=== PATIENT | male | born 1950 | race Caucasian/White ===

== ENCOUNTER 2018-06-27 08:56 | Day surgery (SDC) | payer MEDICARE, OTHER ==
[2018-06-27 09:32] LABS: HEMATOCRIT 39.9 % (37.9-51.0); HEMOGLOBIN 13.7 g/dL (13.5-17.0); MEAN CORPUSCULAR HEMOGLOBIN 30.6 pg (27.0-33.4); MEAN CORPUSCULAR HGB CONC 34.3 g/dL (32.0-36.0); MEAN CORPUSCULAR VOLUME 89 fl (80-97); PLATELET COUNT 186 10^3/uL (150-450); RED BLOOD COUNT 4.47 10^6/uL (4.35-5.55); RED CELL DISTRIBUTION WIDTH 13.3 % (11.5-14.0); WHITE BLOOD COUNT 5.1 10^3/uL (4.0-10.5)
[2018-06-27 09:49] LABS: BLOOD UREA NITROGEN 25 mg/dL (7-20)
[2018-06-27 09:51] LABS: INTERNATIONAL RATION (INR) 0.96; PROTHROMBIN TIME 13.3 SEC (11.4-15.4)
[2018-06-27 09:52] LABS: PARTIAL THROMBOPLASTIN TIME 33.2 SEC (23.5-35.8)
[2018-06-27] MEDS ORDERED: MIDAZOLAM 2 MG/2 ML INJ ONE (10:55)
[2018-06-27] MEDS ORDERED: FENTANYL CITRATE INJ/PF 100 MCG/2 ML AMPUL ONE (10:55)
[2018-06-27] MEDS ORDERED: LIDOCAINE 1% INJ-PF (10 MG/ML) 30 ML SDV ONE (10:56)
--- NOTE | 2018-06-27 12:01 | RADIOLOGY REPORT (SQ) ---
EXAM DESCRIPTION: CT BIOPSY BONE MARROW, NEEDLE; CT NEEDLE PLACEMENT COMPLETED DATE/TIME: 06/27/2018 11:28 am REASON FOR STUDY: ANEMIA; ANEMIA, BONE MARROW BIOPSY D64.9 ANEMIA, UNSPECIFIED Z79.01 [facility] (C URRENT) USE OF ANTICOAGULANTS COMPARISON: None. TECHNIQUE: CT guided biopsy of the right posterior iliac crest performed with conscious sedation. CT Fluoroscopy Time: 2.[address] scanners at this facility use dose modulation, iterative reconstruction, and/or weight based d osing when appropriate to reduce radiation dose to as low as reasonably achievable (ALARA). [facility]: Dose Right [facility]: CareDose [facility]: Dose Right [facility]: Teradose 4D [facility]: [facility] RADIATION DOSE: mGy. FINDINGS: After obtaining informed consent and explaining the risks and benefits of conscious sedati on,the patient agreed to the procedure. Prior to the procedure, a time out was performed to verify th e patient's identity and planned procedure. IV conscious sedation was administered and physician direction by the registered nurse using 1 millig dannielle of Versed and 75 micrograms of fentanyl. Physiologic monitoring was provided before, during, and after sedation. The total sedation time was 30 minutes. Documentation face to face time, the performing proceduralist, spent monitoring the patient: [address] scanning was performed to localize the percutaneous site for the biopsy approach. After sterile skin prep and local lidocaine for skin and deep tissue anesthesia, a coaxial biopsy nee dle was used to obtain a bone marrow aspirate, and a bone marrow core of tissue. The biopsy tissue wa s received by [facility] lab to be sent out for evaluation. There were no immediate complications. Pathology is pending at the time of dictation. IMPRESSION: CT GUIDED ASPIRATE AND CORE BIOPSY OF THE RIGHT POSTERIOR ILIAC CREST BONE MARROW PERFOR MED WITHOUT IMMEDIATE COMPLICATION. PATHOLOGY PENDING. IV CONSCIOUS SEDATION WITHOUT COMPLICATION. COMMENT: Quality ID 145: Final reports for procedures using fluoroscopy that document radiation exp osure indices, or exposure time and number of fluorographic images (if radiation exposure indices are not available) Patient medication list reviewed: Yes- Quality ID# [id number]:Eligible professional attests to documenting i n the medical record they obtained, updated, or reviewed the patient's current medications.. TECHNICAL DOCUMENTATION: JOB ID: [id number] Quality ID# 436: Final reports with documentation of one or more dose reduction techniques (e.g., Aut omated exposure control, adjustment of the mA and/or kV according to patient size, use of iterative r econstruction technique) 2010 [employer]- All Rights Reserved Reading location - IP/workstation name: [email or web address]
--- NOTE | 2018-06-27 12:01 | RADIOLOGY REPORT (SQ) ---
EXAM DESCRIPTION: CT BIOPSY BONE MARROW, NEEDLE; CT NEEDLE PLACEMENT COMPLETED DATE/TIME: 06/27/2018 11:28 am REASON FOR STUDY: ANEMIA; ANEMIA, BONE MARROW BIOPSY D64.9 ANEMIA, UNSPECIFIED Z79.01 [facility] (C URRENT) USE OF ANTICOAGULANTS COMPARISON: None. TECHNIQUE: CT guided biopsy of the right posterior iliac crest performed with conscious sedation. CT Fluoroscopy Time: 2.[address] scanners at this facility use dose modulation, iterative reconstruction, and/or weight based d osing when appropriate to reduce radiation dose to as low as reasonably achievable (ALARA). [facility]: Dose Right [facility]: CareDose [facility]: Dose Right [facility]: Teradose 4D [facility]: [employer] RADIATION DOSE: mGy. FINDINGS: After obtaining informed consent and explaining the risks and benefits of conscious sedati on,the patient agreed to the procedure. Prior to the procedure, a time out was performed to verify th e patient's identity and planned procedure. IV conscious sedation was administered and physician direction by the registered nurse using 1 millig dannielle of Versed and 75 micrograms of fentanyl. Physiologic monitoring was provided before, during, and after sedation. The total sedation time was 30 minutes. Documentation face to face time, the performing proceduralist, spent monitoring the patient: [address] scanning was performed to localize the percutaneous site for the biopsy approach. After sterile skin prep and local lidocaine for skin and deep tissue anesthesia, a coaxial biopsy nee dle was used to obtain a bone marrow aspirate, and a bone marrow core of tissue. The biopsy tissue wa s received by [facility] lab to be sent out for evaluation. There were no immediate complications. Pathology is pending at the time of dictation. IMPRESSION: CT GUIDED ASPIRATE AND CORE BIOPSY OF THE RIGHT POSTERIOR ILIAC CREST BONE MARROW PERFOR MED WITHOUT IMMEDIATE COMPLICATION. PATHOLOGY PENDING. IV CONSCIOUS SEDATION WITHOUT COMPLICATION. COMMENT: Quality ID 145: Final reports for procedures using fluoroscopy that document radiation exp osure indices, or exposure time and number of fluorographic images (if radiation exposure indices are not available) Patient medication list reviewed: Yes- Quality ID# 130:Eligible professional attests to documenting i n the medical record they obtained, updated, or reviewed the patient's current medications.. TECHNICAL DOCUMENTATION: JOB ID: [id number] Quality ID# 436: Final reports with documentation of one or more dose reduction techniques (e.g., Aut omated exposure control, adjustment of the mA and/or kV according to patient size, use of iterative r econstruction technique) 2010 [email or web address]- All Rights Reserved Reading location - IP/workstation name: [email or web address]
[2018-06-27 14:07] VITALS: BP 120/79
== END 2018-06-27 13:40 | disposition home or self-care (01) ==
LOC: RAD 08:56
PROVIDERS: ATTEND Internal Medicine Medical Oncology
DX: D64.9 Anemia, unspecified (principal); Z79.82 Long term (current) use of aspirin; Z79.899 Other long term (current) drug therapy; Z87.891 Personal history of nicotine dependence; Z79.01 Long term (current) use of anticoagulants
CPT/HCPCS: 36415; 84520; 82565; 85027; 85610; 85730; 38221; 77012; J2250; J3010; J3490

== ENCOUNTER → 2018-07-16 | Outpatient (CLI) | payer MEDICARE, OTHER ==
[2018-07-16 11:33] LABS: FREE T3 3.83 pg/mL (2.77-5.27); FREE T4 (FREE THYROXINE) 0.88 ng/dL (0.78-2.19)
[2018-07-16 11:47] LABS: THYROID STIMULATING HORMONE 1.28 uIU/mL (0.47-4.68)
[2018-07-16 12:31] LABS: FOLATE > 20.00 ng/mL (>2.76)
[2018-07-17 06:39] LABS: THYROID PEROXIDASE (TPO) AB 19 IU/mL (0-34)
[2018-07-17 08:23] LABS: THYROGLOBULIN AB <1.0 IU/mL (0.0-0.9)
== END ==
LOC: OD 09:26
PROVIDERS: ATTEND Specialist
DX: G31.84 Mild cognitive impairment of uncertain or unknown etiology (principal); G47.33 Obstructive sleep apnea (adult) (pediatric)
CPT/HCPCS: 36415; 82607; 82746; 84439; 84443; 84481; 86376

== ENCOUNTER → 2018-12-10 | Outpatient (CLI) | payer MEDICARE, OTHER ==
--- NOTE | 2018-12-11 10:15 | RADIOLOGY REPORT (SQ) ---
EXAM DESCRIPTION: PET CT SKULL/THIGH COMPLETED DATE/TIME: 12/10/2018 10:50 pm REASON FOR STUDY: LUNG CANCER R91.1 SOLITARY PULMONARY NODULE COMPARISON: Outside CT 11/18/2018, 10/29/2018, 10/01/2017 RADIONUCLIDE AND DOSE: 10.9 mCi F18 FDG The route of agent administration: Intravenous FASTING BLOOD SUGAR: 96 mg/dl CONTRAST TYPE AND DOSE: No CT contrast given. TECHNIQUE: Blood glucose level was verified. Above dose of FDG was injected intravenously. 2-D seg mented attenuation correction images were obtained from the base of the skull to the midthighs. Nonc ontrast CT images were obtained for attenuation correction and fusion with emission images. CT image s were performed without oral or intravenous contrast and are not sensitive for parenchymal lesions. A series of overlapping emission PET images were obtained. Images reviewed and manipulated at [facility] work station by the radiologist. Images stored on PACS. LIMITATIONS: None. FINDINGS: HEAD AND NECK: No areas of abnormal metabolic activity in the soft tissues of the head and neck. CHEST: Prior outside chest CT exams were reviewed. On the current study, a 6 mm nodule is present i n the right upper lobe at the intersection of the major and minor fissures on axial image 92/303. Th is is too small to effectively characterize with PET-CT being less than a cm in size. PET-CT the hea led of false negative result. Continued periodic low-dose lung CT is recommended for surveillance. A benign 4 x 2 cm enteric cyst is present along the leftward lateral aspect of the distal esophagus i n the lower chest. This has SUV of 0.8 which below soft tissue baseline activity. ABDOMEN AND PELVIS: No areas of abnormal metabolic activity in the abdomen or pelvis. Expected physi ologic activity is present in the genitourinary system and bowel. PROXIMAL LOWER EXTREMITIES: No areas of abnormal metabolic activity in the soft tissues of the lower extremities. BONES: No abnormal metabolic activity in the visualized skeleton. ADDITIONAL CT FINDINGS: Very heavily calcified coronary arteries. Left maxillary sinusitis with air-fluid level. 1.7 cm right lower pole renal stone, [address] u nits in density. Left total hip replacement. OTHER: Blood pool background activity 1.9 SUV. Liver background activity 2.4 SUV. IMPRESSION: 6 mm nodule in the right lobe near the intersection of the major and minor fissure. Thi s is too small to effectively characterize with PET-CT being less than 1 cm in greatest diameter. Co ntinued periodic low-dose lung CT is recommended for surveillance TECHNICAL DOCUMENTATION: JOB ID: [id number] [employer]- All Rights Reserved Reading location - IP/workstation name: [email or web address]
== END ==
LOC: RAD 19:50
PROVIDERS: ATTEND Nurse Practitioner
DX: R91.1 Solitary pulmonary nodule (principal)
CPT/HCPCS: 78815; A9552

== ENCOUNTER 2019-01-05 10:36 | Emergency (ER) | payer MEDICARE, OTHER ==
--- NOTE | 2019-01-05 11:20 | ER Document Report ---
ED Medical Screen (RME) - General Chief Complaint: Fall Injury Stated Complaint: FALL/SHOULDER AND HIP PAIN Time Seen by Provider: 01/05/19 10:59 Primary Care Provider: MARY JOHNSON NP [Primary Care Provider] - Follow up as needed Notes: Patient is a 68-year-old male who presents the emergency department after a fall on his left hip and left shoulder. He is walking his dog this morning and fell on concrete. He has complaints of left hip, left ankle, and left shoulder pain. He is unsure as to whether or not he hit his head. The patient is currently on blood thinners. He has an extensive medical history. Exam: Left hip tenderness I have greeted and performed a rapid initial assessment of this patient. A comprehensive ED assessment and evaluation of the patient, analysis of test results and completion of medical decision making process will be conducted by an additional ED providers. TRAVEL OUTSIDE OF THE [place] IN LAST 30 DAYS: No - Related Data Allergies/Adverse Reactions: No Known Drug Allergies Allergy (Unknown, Verified 01/05/19 10:37) Lobster Allergy (Severe, Uncoded 01/05/19 10:37) Unknown reaction Past Medical History - Past Medical History Cardiac Medical History: Reports: Hx Coronary Artery Disease, Hx Heart Attack - stents x 3, Hx Hypertension Pulmonary Medical History: Denies: Hx Asthma, Hx Bronchitis, Hx COPD, Hx Pneumonia, Hx Tuberculosis Neurological Medical History: Reports: Hx Cerebrovascular Accident - STROKE W/CARDIAC ARREST - NO DEFICITS. Denies: Hx Seizures Musculoskeltal Medical History: Reports Hx Arthritis - ALL OVER Traumatic Medical History: Reports: Hx Fractures - LT hip, RT foot after fall from ladder 1-6-12 Past Surgical History: Reports: Hx Herniorrhaphy - RIGHT inguinal, Hx Orthopedic Surgery - Immunizations Hx Diphtheria, Pertussis, Tetanus Vaccination: Yes - 2009 History of Influenza Vaccine for 06/2017 - 11/2017 Season: No Physical Exam - Vital signs Vitals: Temp Pulse Resp BP Pulse Ox 97.1 F 55 L 18 100/70 97 01/05/19 10:53 01/05/19 10:53 01/05/19 10:53 01/05/19 10:53 01/05/19 10:53 Course - Vital Signs Vital signs: Temp Pulse Resp BP Pulse Ox 97.1 F 55 L 18 100/70 97 01/05/19 10:53 01/05/19 10:53 01/05/19 10:53 01/05/19 10:53 01/05/19 10:53 Doctor's Discharge - Discharge Referrals: MARY JOHNSON NP [Primary Care Provider] - Follow up as needed
--- NOTE | 2019-01-05 12:08 | RADIOLOGY REPORT (SQ) ---
EXAM DESCRIPTION: SHOULDER LEFT 2 OR MORE VIEWS COMPLETED DATE/TIME: 01/05/2019 11:41 am REASON FOR STUDY: fall COMPARISON: None. NUMBER OF VIEWS: Three views. TECHNIQUE: Internal rotation, external rotation, and Y view images acquired of the left shoulder. LIMITATIONS: None. FINDINGS: MINERALIZATION: Normal. BONES: No acute fracture or dislocation. No worrisome bone lesions. JOINTS: No dislocation. VISUALIZED LUNGS AND RIBS: No pneumothorax. No rib fracture. SOFT TISSUES: No radiopaque foreign body. OTHER: No other significant finding. IMPRESSION: NEGATIVE STUDY OF THE LEFT SHOULDER. NO RADIOGRAPHIC EVIDENCE OF ACUTE INJURY. TECHNICAL DOCUMENTATION: JOB ID: [id number] [employer]- All Rights Reserved Reading location - IP/workstation name: [email or web address]
--- NOTE | 2019-01-05 12:08 | RADIOLOGY REPORT (SQ) ---
EXAM DESCRIPTION: ANKLE LEFT COMPLETE COMPLETED DATE/TIME: 01/05/2019 11:41 am REASON FOR STUDY: fall COMPARISON: None. NUMBER OF VIEWS: Three views. TECHNIQUE: AP, lateral, and oblique radiographic images acquired of the left ankle. LIMITATIONS: None. FINDINGS: MINERALIZATION: Osteopenia. BONES: No acute fracture. Extensive hardware from prior trauma. No obvious hardware failure. JOINTS: No effusions. SOFT TISSUES: No soft tissue swelling. No foreign body. OTHER: No other significant finding. IMPRESSION: No acute findings. Old trauma with extensive hardware. TECHNICAL DOCUMENTATION: JOB ID: [id number] [employer]- All Rights Reserved Reading location - IP/workstation name: [email or web address]
[2019-01-05] MEDS ORDERED: FENTANYL CITRATE INJ/PF 100 MCG/2 ML AMPUL IV ONE (12:41)
[2019-01-05 12:43] LABS: ALANINE AMINOTRANSFERASE 35 U/L (21-72); ALKALINE PHOSPHATASE 85 U/L (38-126); ANION GAP 9 (5-19); ASPARTATE AMINO TRANSFERASE 29 U/L (17-59); BILIRUBIN,DIRECT 0.3 mg/dL (0.0-0.4); BILIRUBIN,TOTAL 0.6 mg/dL (0.2-1.3); BLOOD UREA NITROGEN 35 mg/dL (7-20); CARBON DIOXIDE 26 mmol/L (22-30); CHLORIDE 104 mmol/L (98-107); GLUCOSE 95 mg/dL (75-110); POTASSIUM 4.7 mmol/L (3.6-5.0); SODIUM 139.1 mmol/L (137-145); TOTAL PROTEIN 7.1 g/dL (6.3-8.2)
[2019-01-05 13:02] LABS: ABSOLUTE EOSINOPHILS # (AUTO) 0.1 10^3/uL (0.0-0.6); ABSOLUTE LYMPHOCYTES (AUTO) 1.5 10^3/uL (0.5-4.7); ABSOLUTE MONOCYTES (AUTO) 0.7 10^3/uL (0.1-1.4); ABSOLUTE NEUT (AUTO) 8.5 10^3/uL (1.7-8.2); BASOPHILS % (AUTO) 0.2 % (0-2); EOSINOPHILS % (AUTO) 1.3 % (0-6); HEMATOCRIT 35.3 % (37.9-51.0); LYMPHOCYTES % (AUTO) 13.7 % (13-45); MEAN CORPUSCULAR HEMOGLOBIN 30.4 pg (27.0-33.4); MEAN CORPUSCULAR HGB CONC 34.1 g/dL (32.0-36.0); MEAN CORPUSCULAR VOLUME 89 fl (80-97); MONOCYTES % (AUTO) 6.1 % (3-13); PLATELET COUNT 193 10^3/uL (150-450); RED BLOOD COUNT 3.95 10^6/uL (4.35-5.55); RED CELL DISTRIBUTION WIDTH 13.5 % (11.5-14.0); SEGMENTED NEUTROPHILS % (AUTO) 78.7 % (42-78); TOTAL CELLS COUNTED % (AUTO) 100 %; WHITE BLOOD COUNT 10.8 10^3/uL (4.0-10.5)
--- NOTE | 2019-01-05 13:26 | RADIOLOGY REPORT (SQ) ---
EXAM DESCRIPTION: PELVIS AP COMPLETED DATE/TIME: 01/05/2019 12:55 pm REASON FOR STUDY: fall COMPARISON: None. NUMBER OF VIEWS: One view TECHNIQUE: AP Pelvis LIMITATIONS: None. FINDINGS: MINERALIZATION: Normal. HIPS: No acute fracture or dislocation. Left total hip arthroplasty hardware appears in expected pos ition on this frontal projection. PELVIS AND SACRUM: No acute fracture or dislocation. No worrisome bone lesions. PUBIS AND ISCHIUM: No acute fracture. LOWER LUMBAR SPINE: No significant findings as visualized. SOFT TISSUES: No findings. OTHER: No other significant finding. IMPRESSION: No fracture identified. COMMENT: Pelvic fractures are often occult on plain radiographs. If strong clinical suspicion for f racture, recommend CT or MR. TECHNICAL DOCUMENTATION: JOB ID: [id number] [place]-72 2010 [employer]- All Rights Reserved Reading location - IP/workstation name: [email or web address]
--- NOTE | 2019-01-05 13:29 | ER Document Report ---
ED General - General Chief Complaint: Fall Injury Stated Complaint: FALL/SHOULDER AND HIP PAIN Time Seen by Provider: 01/05/19 10:59 Primary Care Provider: MARY JOHNSON NP [Primary Care Provider] - Follow up as needed Mode of Arrival: Ambulatory Information source: Patient, [facility] Records Notes: 68-year-old male with coronary artery disease, hypertension, early onset dementia presents with left shoulder and left hip pain after a trip and fall just prior to arrival. Patient states that he was walking his dog who spotted a cat and began running. Patient states that he began running after the dog and states that he fell landing on his left side. He denies head injury, loss of consciousness. He was able to get up after the fall and walk although he states it was painful. Patient does have a history of left hip prosthesis. Patient denies preceding chest pain, shortness of breath, dizziness. TRAVEL OUTSIDE OF THE [place] IN LAST 30 DAYS: No - HPI Onset: Just prior to arrival Onset/Duration: Sudden Quality of pain: Achy, Throbbing Severity: Moderate Associated symptoms: Body/muscle aches. denies: Chest pain, Productive cough, Diarrhea, Fever, Nausea, Vomiting, Shortness of breath Exacerbated by: Movement, Walking Relieved by: Remaining still Similar symptoms previously: No Recently seen / treated by doctor: No - Related Data Allergies/Adverse Reactions: No Known Drug Allergies Allergy (Unknown, Verified 01/05/19 10:37) Lobster Allergy (Severe, Uncoded 01/05/19 10:37) Unknown reaction Past Medical History - General Information source: Patient, [facility] Records - Social History Smoking Status: Former Smoker Frequency of alcohol use: None Drug Abuse: None Lives with: Spouse/Significant other Family History: None Patient has suicidal ideation: No Patient has homicidal ideation: No - Past Medical History Cardiac Medical History: Reports: Hx Coronary Artery Disease, Hx Heart Attack - stents x 3, Hx Hypertension Pulmonary Medical History: Denies: Hx Asthma, Hx Bronchitis, Hx COPD, Hx Pneumonia, Hx Tuberculosis Neurological Medical History: Reports: Hx Cerebrovascular Accident - STROKE W/C ARDIAC ARREST - NO DEFICITS. Denies: Hx Seizures Renal/ Medical History: Denies: Hx Peritoneal Dialysis Musculoskeletal Medical History: Reports Hx Arthritis - ALL OVER Traumatic Medical History: Reports: Hx Fractures - LT hip, RT foot after fall from ladder 1-6-12 Past Surgical History: Reports: Hx Herniorrhaphy - RIGHT inguinal, Hx Orthopedic Surgery - Immunizations Hx Diphtheria, Pertussis, Tetanus Vaccination: Yes - 2009 Hx Pneumococcal Vaccination: 06/03/17 Review of Systems - Review of Systems Notes: REVIEW OF SYSTEMS: CONSTITUTIONAL : Denies fever, chills, or sweats. Denies recent illness. Denies weight loss, recent hospitalizations. EENT: Denies visual changes, eye pain. Denies sore throat, oral lesions, difficulty swallowing. CARDIOVASCULAR: Denies chest pain. Denies palpitations. Denies lower extremity edema. RESPIRATORY: Denies cough. Denies shortness of breath, wheezing. GASTROINTESTINAL: Denies abdominal pain or distention. Denies nausea, vomiting, or diarrhea. Denies blood in vomitus, stools, or per rectum. Denies black, tarry stools. Denies constipation. GENITOURINARY: Denies difficulty urinating, painful urination, frequency, blood in urine, testicular pain or penile discharge. MUSCULOSKELETAL: Denies back or neck pain or stiffness. + joint pain or swelling. SKIN: Denies rash, lesions or sores. HEMATOLOGIC : Denies easy bruising or bleeding. LYMPHATIC: Denies swollen glands. NEUROLOGICAL: Denies confusion or altered mental status. Denies loss of consciousness. Denies dizziness or lightheadedness. Denies headache. Denies weakness or paralysis. Denies problems difficulty with ambulation, slurred speech. Denies sensory loss, numbness, or tingling. Denies seizures. PSYCHIATRIC: Denies anxiety or stress. Denies depression, suicidal ideation, or Physical Exam - Vital signs Vitals: Temp Pulse Resp BP Pulse Ox 97.1 F 55 L 18 100/70 97 01/05/19 10:53 01/05/19 10:53 01/05/19 10:53 01/05/19 10:53 01/05/19 10:53 - Notes Notes: PHYSICAL EXAMINATION: GENERAL: Well-appearing, well-nourished and in no acute distress. GCS 15 HEAD: Atraumatic, normocephalic. EYES: Pupils equal round and reactive to light, extraocular movements intact, sclera anicteric, conjunctiva are normal. ENT: Nares patent, oropharynx clear without exudates. Moist mucous membranes. No hemanotympanum . No blood in nares. No dental fracture NECK: Normal range of motion, supple without lymphadenopathy. Trachea midline LUNGS: Breath sounds clear to auscultation bilaterally and equal. No wheezes rales or rhonchi. HEART: Regular rate and rhythm without murmurs. Pulses intact all throughout. ABDOMEN: Soft, nontender, nondistended abdomen. No guarding, no rebound. No masses appreciated. Musculoskeletal: Normal range of motion, no pitting or edema. No cyanosis. Superficial abrasion along the left hip with associated ecchymosis. Patient has full range of motion with minimal pain. No obvious deformity. DP, PT pulse intact. Left shoulder mild tenderness with palpation, no obvious deformity. NEUROLOGICAL: Cranial nerves grossly intact. Normal speech, normal gait. Normal sensory, motor, and reflex exams. PSYCH: Normal mood, normal affect. SKIN: Superficial abrasion to the left hip with associated ecchymosis. Course - Re-evaluation Re-evalutation: 01/05/19 14:21 Laboratory 01/05/19 01/05/19 12:11 12:11 WBC 10.8 H RBC 3.95 L Hgb 12.0 L Hct 35.3 L MCV 89 MCH 30.4 MCHC 34.1 RDW 13.5 Plt Count 193 Seg Neutrophils % 78.7 H Lymphocytes % 13.7 Monocytes % 6.1 Eosinophils % 1.3 Basophils % 0.2 Absolute Neutrophils 8.5 H Absolute Lymphocytes 1.5 Absolute Monocytes 0.7 Absolute Eosinophils 0.1 Absolute Basophils 0.0 Sodium 139.1 Potassium 4.7 Chloride 104 Carbon Dioxide 26 Anion Gap 9 BUN 35 H Creatinine 1.25 Est GFR ( Amer) > 60 Est GFR (Non-Af Amer) 57 L Glucose 95 Calcium 10.0 Total Bilirubin 0.6 Direct Bilirubin 0.3 Neonat Total Bilirubin Not Reportable Neonat Direct Bilirubin Not Reportable Neonat Indirect Bili Not Reportable AST 29 ALT 35 Alkaline Phosphatase 85 Total Protein 7.1 Albumin 4.0 Shoulder X-Ray 01/05/19 11:19 IMPRESSION: NEGATIVE STUDY OF THE LEFT SHOULDER. NO RADIOGRAPHIC EVIDENCE OF ACUTE INJURY. Ankle X-Ray 01/05/19 11:20 IMPRESSION: No acute findings. Old trauma with extensive hardware. Pelvis X-Ray 01/05/19 12:42 IMPRESSION: No fracture identified. Temp Pulse Resp BP Pulse Ox 97.1 F 55 L 18 100/70 97 01/05/19 10:53 01/05/19 10:53 01/05/19 10:53 01/05/19 10:53 01/05/19 10:53 01/06/19 16:06 60-year-old male presents after a trip and fall just prior to arrival. Patient states he was running after his dog who was running after a cat when he tripped and fell landing on his left hip. He denies head injury, loss of consciousness. He is not on any blood thinning medications. Patient currently complaining of left shoulder pain, left hip pain and left ankle pain. X-rays of these areas were obtained and negative for any acute process. Patient has had no evidence of head involvement. He is alert, awake and with a completely normal neurologic exam. Patient was evaluated and treated as appropriate for the patient's presenting symptoms and complaint, with consideration of any critical or life threatening conditions that may be associated with their obtained history and exam as noted above. All results were discussed with patient . Patient provided the opportunity to ask questions, and express concerns. Patient was educated on treatments based on their presumed diagnosis as noted above. At this time we will discharge the patient with return precautions and follow-up recommendations. Verbal discharge instructions given a the bedside. Medication warnings reviewed. Patient is in agreement with this plan and has verbalized understanding of return precautions. After careful consideration I feel that that patient can be safely discharged from the emergency department, they were advised to followup with a primary care physician in 2-3 days. Dictation on this chart was performed using voice recognition software and may result in unintended grammatical, spelling, syntax or errors. - Vital Signs Vital signs: Temp Pulse Resp BP Pulse Ox 97.5 F 55 L 18 100/62 100 01/05/19 14:23 01/05/19 10:53 01/05/19 14:23 01/05/19 14:23 01/05/19 14:23 - Laboratory Result Diagrams: 01/05/19 12:11 01/05/19 12:11 Laboratory results interpreted by me: 01/05/19 01/05/19 12:11 12:11 WBC 10.8 H RBC 3.95 L Hgb 12.0 L Hct 35.3 L Seg Neutrophils % 78.7 H Absolute Neutrophils 8.5 H BUN 35 H Est GFR (Non-Af Amer) 57 L - Diagnostic Test Radiology reviewed: Image reviewed, Reports reviewed Discharge - Discharge Clinical Impression: Left shoulder strain Qualifiers: Encounter type: initial encounter Qualified Code(s): S46.912A - Strain of unspecified muscle, fascia and tendon at shoulder and upper arm level, left arm, initial encounter Fall Qualifiers: Encounter type: initial encounter Qualified Code(s): W19.XXXA - Unspecified fall, initial encounter Contusion of left hip Qualifiers: Encounter type: initial encounter Qualified Code(s): S70.02XA - Contusion of left hip, initial encounter Disposition: HOME, SELF-CARE Instructions: Contusion (OM), Exercise Program for the Shoulder (OM), Shoulder Injury (OM) Additional Instructions: You have been seen in the Emergency Department (ED) today following a fall. Your workup today did not reveal any injuries that require you to stay in the hospital. You can expect, though, to be stiff and sore for the next several days. You can take Tylenol 1000 mg every 6 hours as needed for pain. You can apply a hot pack or electric heating pad to the sore areas. You can also use topical "Aspercreme with lidocaine" to sore areas as needed. Please follow up with your primary care doctor as soon as possible regarding today's ED visit and your recent fall. Call your doctor or return to the ED if you develop a sudden or severe headache, confusion, slurred speech, facial droop, weakness or numbness in any arm or leg, extreme fatigue, vomiting more than two times, severe abdominal pain, or other symptoms that concern you. Referrals: MARY JOHNSON NP [Primary Care Provider] - Follow up as needed
[2019-01-05 14:41] VITALS: BP 100/62
== END 2019-01-05 14:42 | disposition home or self-care (01) ==
LOC: ER 10:36
DX: S46.912A Strain of unspecified muscle, fascia and tendon at shoulder and upper arm level, left arm, initial encounter (principal); S70.02XA Contusion of left hip, initial encounter; M25.512 Pain in left shoulder; M25.552 Pain in left hip; M79.10 Myalgia, unspecified site; W01.0XXA Fall on same level from slipping, tripping and stumbling without subsequent striking against object, initial encounter; Z87.891 Personal history of nicotine dependence; I25.10 Atherosclerotic heart disease of native coronary artery without angina pectoris; I10 Essential (primary) hypertension
CPT/HCPCS: 99283; 96374; 36415; 85025; 80053; 73610; 72170; 73030; J3010

== ENCOUNTER 2020-03-19 09:35 | Emergency (ER) | payer MEDICARE, OTHER ==
--- NOTE | 2020-03-19 10:09 | ER Document Report ---
ED Medical Screen (RME) - General Chief Complaint: Rib Pain Stated Complaint: FALL/RIB PAIN Time Seen by Provider: 03/19/20 10:04 Primary Care Provider: MARY JOHNSON NP [Primary Care Provider] - Follow up as needed Mode of Arrival: Wheelchair Information source: Patient Notes: 70-year-old male presents to ED for multiple falls with bruising and pain to the left chest and abdomen. He does have bruising to the left ribs. He does have a history of Alzheimer's he is on Plavix. Have ordered blood work and CT IV contrasted chest and abdomen. I have greeted and performed a rapid initial assessment of this patient. A comprehensive ED assessment and evaluation of the patient, analysis of test results and completion of medical decision making process will be conducted by an additional ED providers. TRAVEL OUTSIDE OF THE [place] IN LAST 30 DAYS: No - Related Data Allergies/Adverse Reactions: No Known Drug Allergies Allergy (Unknown, Verified 03/19/20 09:38) Lobster Allergy (Severe, Uncoded 03/19/20 09:38) Unknown reaction Home Medications: donepezil. protonix. zoloft. lisinpril. toprol. aspirin. lipitor. plavix. imdur Past Medical History - Past Medical History Cardiac Medical History: Reports: Hx Coronary Artery Disease, Hx Heart Attack - stents x 3, Hx Hypertension Pulmonary Medical History: Denies: Hx Asthma, Hx Bronchitis, Hx COPD, Hx Pneumonia, Hx Tuberculosis Neurological Medical History: Reports: Hx Cerebrovascular Accident - STROKE W/CARDIAC ARREST - NO DEFICITS. Denies: Hx Seizures, Hx Parkinson's Disease Renal/ Medical History: Denies: Hx Peritoneal Dialysis Musculoskeltal Medical History: Reports Hx Arthritis - ALL OVER Traumatic Medical History: Reports: Hx Fractures - LT hip, RT foot after fall from ladder 1-6-12 Past Surgical History: Reports: Hx Herniorrhaphy - RIGHT inguinal, Hx Orthopedic Surgery - Immunizations Hx Diphtheria, Pertussis, Tetanus Vaccination: Yes - 2009 Physical Exam - Vital signs Vitals: Temp Pulse Resp BP Pulse Ox 97.3 F 60 20 112/94 H 99 03/19/20 09:39 03/19/20 09:39 03/19/20 09:39 03/19/20 09:39 03/19/20 09:39 Course - Vital Signs Vital signs: Temp Pulse Resp BP Pulse Ox 97.5 F 60 20 112/94 H 99 03/19/20 09:39 03/19/20 09:39 03/19/20 09:39 03/19/20 09:39 03/19/20 09:39 Doctor's Discharge - Discharge Referrals: MARY JOHNSON NP [Primary Care Provider] - Follow up as needed
[2020-03-19 10:42] LABS: ABSOLUTE BASOPHILS # (AUTO) 0.1 10^3/uL (0.0-0.2); ABSOLUTE EOSINOPHILS # (AUTO) 0.2 10^3/uL (0.0-0.6); ABSOLUTE LYMPHOCYTES (AUTO) 1.5 10^3/uL (0.5-4.7); ABSOLUTE MONOCYTES (AUTO) 0.6 10^3/uL (0.1-1.4); ABSOLUTE NEUT (AUTO) 4.2 10^3/uL (1.7-8.2); BASOPHILS % (AUTO) 0.8 % (0-2); EOSINOPHILS % (AUTO) 3.4 % (0-6); HEMATOCRIT 37.6 % (37.9-51.0); LYMPHOCYTES % (AUTO) 22.6 % (13-45); MEAN CORPUSCULAR HEMOGLOBIN 31.1 pg (27.0-33.4); MEAN CORPUSCULAR HGB CONC 34.6 g/dL (32.0-36.0); MEAN CORPUSCULAR VOLUME 90 fl (80-97); MONOCYTES % (AUTO) 9.4 % (3-13); PLATELET COUNT 185 10^3/uL (150-450); RED BLOOD COUNT 4.18 10^6/uL (4.35-5.55); RED CELL DISTRIBUTION WIDTH 13.4 % (11.5-14.0); SEGMENTED NEUTROPHILS % (AUTO) 63.8 % (42-78); TOTAL CELLS COUNTED % (AUTO) 100 %; WHITE BLOOD COUNT 6.6 10^3/uL (4.0-10.5)
[2020-03-19 10:48] LABS: INTERNATIONAL RATION (INR) 1.02; PARTIAL THROMBOPLASTIN TIME 28.9 SEC (23.5-35.8); PROTHROMBIN TIME 13.4 SEC (11.4-15.4)
[2020-03-19 11:13] LABS: ALBUMIN 4.4 g/dL (3.5-5.0); ALKALINE PHOSPHATASE 87 U/L (38-126); ANION GAP 8 (5-19); ASPARTATE AMINO TRANSFERASE 24 U/L (17-59); BILIRUBIN,TOTAL 0.5 mg/dL (0.2-1.3); BLOOD UREA NITROGEN 27 mg/dL (7-20); CALCIUM 9.7 mg/dL (8.4-10.2); CARBON DIOXIDE 27 mmol/L (22-30); CHLORIDE 103 mmol/L (98-107); GLUCOSE 117 mg/dL (75-110); POTASSIUM 4.4 mmol/L (3.6-5.0); TOTAL PROTEIN 7.4 g/dL (6.3-8.2)
[2020-03-19 12:02] LABS: APPEARANCE,URINE CLOUDY; BILIRUBIN,URINE NEGATIVE (NEGATIVE); COLOR,URINE YELLOW; GLUCOSE, URINE NEGATIVE (NEGATIVE); KETONES,URINE NEGATIVE (NEGATIVE); LEUKOCYTE ESTERASE,URINE LARGE (NEGATIVE); NITRITE,URINE NEGATIVE (NEGATIVE); PROTEIN,URINE NEGATIVE (NEGATIVE); URINE SPECIFIC GRAVITY 1.021; UROBILINOGEN,URINE NEGATIVE mg/dL (<2.0)
--- NOTE | 2020-03-19 12:12 | ER Document Report ---
Entered by MARLEEN WALLACE SCRIBE 03/19/20 1128 Acting as scribe for:KHAI EDOUARD MD ED Fall - General Chief Complaint: Rib Pain Stated Complaint: FALL/RIB PAIN Time Seen by Provider: 03/19/20 10:04 Primary Care Provider: MARY JOHNSON NP [Primary Care Provider] - Follow up as needed Mode of Arrival: Wheelchair Information source: Patient Notes: This 70 year old male patient presents to the emergency department today with complaints of left lateral chest wall pain. Patient's at bedside mentions that the patient has the beginning stages of Alzheimer's and "falls a lot" but does not always tells her when he falls. indicates that she usually only knows he falls is by seeing bruising. states about a month ago the patient fell in his closet, striking the left chest wall. states that the patient had some pain but due to COVID they did not get seen for it. states that she noticed two new bruises yesterday near this same area. Patient ambulates with a cane. TRAVEL OUTSIDE OF THE [place] IN LAST 30 DAYS: No - Related data Allergies/Adverse Reactions: No Known Drug Allergies Allergy (Unknown, Verified 03/19/20 09:38) Lobster Allergy (Severe, Uncoded 03/19/20 09:38) Unknown reaction Home Medications: donepezil. protonix. zoloft. lisinpril. toprol. aspirin. lipitor. plavix. imdur Past Medical History - General Information source: Patient - Social History Smoking Status: Former Smoker - quit in 2010 Cigarette use (# per day): No Frequency of alcohol use: None Drug Abuse: None Occupation: retired Lives with: Family Family History: Reviewed & Not Pertinent - Past Medical History Cardiac Medical History: Reports: Hx Coronary Artery Disease, Hx Heart Attack - stents x 3, Hx Hypertension Neurological Medical History: Reports: Hx Cerebrovascular Accident - STROKE W/C ARDIAC ARREST - NO DEFICITS Musculoskeletal Medical History: Reports Hx Arthritis - ALL OVER Traumatic Medical History: Reports: Hx Fractures - LT hip, RT foot after fall from ladder 1-6-12 Past Surgical History: Reports: Hx Herniorrhaphy - RIGHT inguinal, Hx Orthopedic Surgery - Immunizations Hx Diphtheria, Pertussis, Tetanus Vaccination: Yes - 2009 Hx Pneumococcal Vaccination: 06/03/17 Review of Systems - Review of Systems Constitutional: See HPI, Other - frequent falls EENT: No symptoms reported Cardiovascular: No symptoms reported Respiratory: No symptoms reported Gastrointestinal: No symptoms reported Genitourinary: No symptoms reported Male Genitourinary: No symptoms reported Musculoskeletal: See HPI, Other - left chest wall pain Skin: No symptoms reported Hematologic/Lymphatic: No symptoms reported Neurological/Psychological: No symptoms reported -: Yes All other systems reviewed and negative Physical Exam - Vital signs Vitals: Temp Pulse Resp BP Pulse Ox 97.3 F 60 20 112/94 H 99 03/19/20 09:39 03/19/20 09:39 03/19/20 09:39 03/19/20 09:39 03/19/20 09:39 - Notes Notes: Physical Exam: General: Alert, appears well. HEENT: Normocephalic. Atraumatic. PERRL. Extraocular movements intact. Oropharynx clear. Neck: Supple. Non-tender. Respiratory: No respiratory distress. Clear and equal breath sounds bilaterally. Exquisite left anterolateral chest wall pain around rib #9. There are two old bruises that are not tender. There is an old bruise in the left upper quadrant, but this is not tender. There is no tenderness under the ribs. Cardiovascular: Regular rate and rhythm. Abdominal: Normal Inspection. Non-tender. No distension. Normal Bowel Sounds. Back: No gross abnormalities. Extremities: Moves all four extremities. Upper extremities: Normal inspection. Normal ROM. Lower extremities: Normal inspection. No edema. Normal ROM. Neurological: Normal cognition. AAOx4. Normal speech. Psychological: Normal affect. Normal Mood. Skin: Warm. Dry. Normal color. Course - Re-evaluation Re-evalutation: 03/19/20 13:[address] scan results with the spouse and the patient, she recalls that he fell in the shed about 3 days ago against a countertop. That is likely the time that he suffered these fractures. The urine was large leukocyte esterase, 7 WBCs, nitrite negative. The urine will be cultured, as he is not complaining of UTI symptoms. - Vital Signs Vital signs: Temp Pulse Resp BP Pulse Ox 97.5 F 60 20 112/94 H 99 03/19/20 09:39 03/19/20 09:39 03/19/20 09:39 03/19/20 09:39 03/19/20 09:39 - Laboratory Result Diagrams: 03/19/20 10:20 03/19/20 10:20 Laboratory results interpreted by me: 03/19/20 03/19/20 03/19/20 10:20 10:20 11:38 RBC 4.18 L Hgb 13.0 L Hct 37.6 L BUN 27 H Glucose 117 H Urine Blood SMALL H Ur Leukocyte Esterase LARGE H - Diagnostic Test Radiology reviewed: Image reviewed, Reports reviewed - CT chest abdomen pelvis with contrast shows a nondisplaced anterior left second through sixth rib fractures without pneumothorax. There is a 7 mm noncalcified pulmonary nodule in the left upper lobe which is new since the previous PET CT on 12/10/2018. Discharge - Discharge Clinical Impression: Multiple rib fractures involving four or more ribs Condition: Stable Disposition: HOME, SELF-CARE Additional Instructions: Rib Injuries and Fractures You have been diagnosed as having either bruised or broken ribs. These two injuries are treated in the same way. It will usually take four to six weeks for these injured ribs to heal. Sometimes, rib belts or anesthetic injections of the chest wall help reduce the pain. If you are using a rib belt, you should cough or take a deep breath at least every hour or two to prevent lung complications. You should not engage in any strenuous physical activity until released by your physician. The usual rule is "if it hurts, don't do it." Rib fractures can lead to serious lung complications including lung collapse, hemorrhage, and pneumonia. You should call the physician or return at once if any of the following occur: (1) Fever or chills. (2) Persistent cough, coughing up blood, or shortness of breath. (3) Increasing pain. (4) Weakness, lightheadedness, or fainting. Your CT scan shows nondisplaced fractures in ribs numbers 2, 3, 4, 5, and 6. There are no injuries to the underlying tissues seen. The urine today had some white blood cells and leukocyte esterase in it, it will be cultured in case you are developing a urinary tract infection. You should be sure to drink plenty of water throughout the day in the evening every day to stay well-hydrated. Take Tylenol for pain as needed. Follow-up with your primary care provider next week for recheck. Take copies of the CT scan with you for your primary care provider to review. RETURN TO THE EMERGENCY ROOM IF ANY NEW OR WORSENING SYMPTOMS. Referrals: MARY JOHNSON NP [Primary Care Provider] - Follow up in 3-5 days I personally performed the services described in the documentation, reviewed and edited the documentation which was dictated to the scribe in my presence, and it accurately records my words and actions.
--- NOTE | 2020-03-19 13:12 | RADIOLOGY REPORT (SQ) ---
EXAM DESCRIPTION: CT CHEST WITH; CT ABD/PELVIS WITH IV ONLY IMAGES COMPLETED DATE/TIME: 03/19/2020 11:17 am REASON FOR STUDY: Multiple falls left-sided pain on blood thinners. Fell 2 weeks ago with bruise to left side of the abdomen. Multiple falls. Patient takes blood thinners. COMPARISON: PET CT, 12/10/2018. CTA chest, 03/31/2013. CONTRAST TYPE AND DOSE: contrast/concentration: Isovue 350.00 mmol/ml; Total Contrast Delivered: 100 .0 ml; Total Saline Delivered: 80.0 ml RENAL FUNCTION: GFR > 60. TECHNIQUE: CT scan of the chest performed using helical scanning technique with dynamic intravenous contrast injection. Images reviewed with lung, soft tissue and bone windows. Reconstructed coronal a nd sagittal MPR images reviewed. All images stored on PACS. CT scan of the abdomen and pelvis performed with intravenous and oral contrast using helical scanning technique with dynamic intravenous contrast injection. Images reviewed with lung, soft tissue and b one windows. Reconstructed coronal and sagittal MPR images reviewed. Delayed images for evaluation of the urinary system also acquired and evaluated. All images stored on PACS. All CT scanners at this facility use dose modulation, iterative reconstruction, and/or weight based d osing when appropriate to reduce radiation dose to as low as reasonably achievable (ALARA). [facility]: Dose Right [facility]: CareDose [facility]: Dose Right [facility]: Teradose 4D [facility]: [employer] RADIATION DOSE: CT Rad equipment meets quality standard of care and radiation dose reduction techniq ues were employed. CTDIvol: 9.2 - 13.1 mGy. DLP: 1617 mGy-cm. . LIMITATIONS: None. FINDINGS: CHEST: AXILLAE: No adenopathy. CHEST WALL: No masses. No subcutaneous air. LUNGS: The trachea has normal caliber and appearance. No bronchial wall thickening or bronchiectasis . No focal consolidation. There is a new 7 mm noncalcified pulmonary nodule in the left upper lobe along the fissure (image 28). Previously described nodule at the medial right upper lobe is not visu alized on today's examination. There is a 2 mm subpleural nodule along the right major fissure which is stable from previous (image 89). No significant ground-glass attenuation. PLEURA: No effusions. No calcifications. THYROID: No masses or significant asymmetry. HILAR AND MEDIASTINAL STRUCTURES: Small hiatal hernia. No identified masses or abnormal nodes. AORTA AND GREAT VESSELS: No aneurysm. No dissection. PULMONARY ARTERIES: No identified pulmonary emboli. Study not optimized for the pulmonary arteries. HEART: Normal size. Calcified coronary arteries. No pericardial effusion. HARDWARE AND LIFELINES: None. BONES: There are nondisplaced fractures of the anterior left 2nd, 3rd, 4th, 5th, and 6th ribs. No ve rtebral body fracture. Sternum is intact. OTHER: No other significant finding. ABDOMEN AND PELVIS: LIVER: Normal size and contour. No focal hepatic mass. Hepatic and portal veins are patent. No owen iary ductal dilation. SPLEEN: Normal size. No focal lesions. PANCREAS: No masses. No significant calcifications. No adjacent inflammation or peripancreatic flui d collections. Pancreatic duct not dilated. GALLBLADDER: Gallbladder is contracted. No gallstones or debris within the gallbladder lumen. No ga llbladder wall thickening or pericholecystic fluid. ADRENAL GLANDS: No significant masses or asymmetry. RIGHT KIDNEY AND URETER: No solid masses. 1.2 cm nonobstructing right inferior pole renal calculus. Small exophytic right renal cortical cyst at the superior pole. Punctate nonobstructing right supe rior pole calculus. No obstructing renal or ureteral calculus. No hydronephrosis. No perinephric f luid. LEFT KIDNEY AND URETER: No solid masses. No significant calcifications. No hydronephrosis or hydr oureter. AORTA AND VESSELS: No aneurysm. No dissection. Renal arteries, SMA, celiac without stenosis. RETROPERITONEUM: No retroperitoneal adenopathy, hemorrhage or masses. LARGE AND SMALL BOWEL: Sigmoid diverticulitis without evidence of diverticulitis. No bowel obstructi on. No bowel wall thickening. No significant inflammatory change. APPENDIX: Normal. ABDOMINAL WALL: No hernia or masses. PERITONEAL CAVITY: No free air. No free fluid. No peritoneal implants or masses. PELVIS: Visualization of the pelvic structures is limited due to beam hardening artifact from the lef t hip arthroplasty. BONES: Left hip arthroplasty partially visualized. Facet arthropathy in the lower lumbar spine. No fracture or suspicious bone lesion. Degenerative disc disease in the thoracic and lumbar spine. OTHER: No other significant finding. IMPRESSION: 1. Nondisplaced anterior left 2nd- 6th rib fractures. No pneumothorax. 2. 7 mm noncalcified pulmonary nodule in the left upper lobe is new since previous PET CT in 2019 and is indeterminate. A follow-up CT of the chest in 6 months is recommended for re-evaluation. 3. Nonobstructing right renal calculi. No obstructing renal or ureteral calculus. No hydronephrosis . 4. Colonic diverticulosis without evidence of diverticulitis. No acute abnormality in the abdomen or pelvis. FLEISCHNER CRITERIA FOR FOLLOW-UP OF PULMONARY NODULES Incidentally detected new nodules in persons 35 or older. HIGH RISK: History of smoking or other known risk factors. 6-8 mm single solid nodule: LOW RISK: CT 6-12 mo; then consider CT 18-24 mo. HIGH RISK: CT 6-12 mo; t hen CT 18-24 mo. TECHNICAL DOCUMENTATION: JOB ID: [id number] Quality ID # [id number]: Final reports with documentation of one or more dose reduction techniques (e.g., Au tomated exposure control, adjustment of the mA and/or kV according to patient size, use of iterative reconstruction technique) 2010 [employer]- All Rights Reserved Reading location - IP/workstation name: [email or web address]
[2020-03-19 14:11] VITALS: BP 111/73
== END 2020-03-19 14:10 | disposition home or self-care (01) ==
LOC: ER 09:35
DX: S22.42XA Multiple fractures of ribs, left side, initial encounter for closed fracture (principal); R07.81 Pleurodynia; R07.89 Other chest pain; G30.9 Alzheimer's disease, unspecified; F02.80 Dementia in other diseases classified elsewhere, unspecified severity, without behavioral disturbance, psychotic disturbance, mood disturbance, and anxiety; W22.01XA Walked into wall, initial encounter; Z79.899 Other long term (current) drug therapy; Z79.02 Long term (current) use of antithrombotics/antiplatelets; Z87.891 Personal history of nicotine dependence; I25.10 Atherosclerotic heart disease of native coronary artery without angina pectoris; I25.2 Old myocardial infarction; I10 Essential (primary) hypertension
CPT/HCPCS: 36415; 71260; 74177; 80053; 81001; 85025; 85610; 85730; 87086; 87088; 87186; 99284